=== PATIENT | female | born 1985 | race Caucasian/White ===

== ENCOUNTER 2016-08-29 10:50 | Emergency (ER) | payer OTHER ==
[~2016-08-29] VITALS: Ht 162.6 cm; Wt 89.0 kg
[2016-08-29 10:56] VITALS: Ht 162.6 cm; Wt 89.0 kg
[2016-08-29] MEDS ORDERED: IBUPROFEN 800 MG TAB PO ONE (13:30)
[2016-08-29 13:33] LABS: URINE BLOOD (Dip) POC 1+ (NEGATIVE)
[2016-08-29] MEDS ORDERED: IBUP-1542 PO (14:08)
--- NOTE | 2016-08-29 14:11 | ERD ---
ER Documentation Chief Complaint Date/Time DATE: 08/29/16 TIME: 14:10 Chief Complaint body aches, chills x 3days HPI This 31-year-old female presents with fever and body aches for last 2 days. She denies sore throat, cough, vomiting, abdominal pain, diarrhea, urinary complaints, neck stiffness, headache, rashes. ROS All systems reviewed and are negative except as per history of present illness. Medications Home Meds Active Scripts Ibuprofen* (Motrin*) 600 Mg Tab, 600 MG PO Q6, #20 TAB Prov:LUL FERNANDEZ MD 08/29/16 Allergies Allergies: Coded Allergies: No Known Allergy (Unverified , 08/29/16) PMhx/Soc Medical and Surgical Hx: pt denies Medical Hx, pt denies Surgical Hx Physical Exam Vitals Vital Signs Date Time Temp Pulse Resp B/P Pulse Ox O2 Delivery O2 Flow Rate FiO2 08/29/16 10:56 98.8 89 20 139/78 99 Physical Exam Const: [] Alert, [id number] per Head: Atraumatic Eyes: Normal Conjunctiva ENT: Normal External Ears, Nose and Mouth. Neck: Full range of motion..~ No meningismus. Resp: Clear to auscultation bilaterally Cardio: Regular rate and rhythm, no murmurs Abd: Soft, non tender, non distended. Normal bowel sounds Skin: No petechiae or rashes Back: No midline or flank tenderness Ext: No cyanosis, or edema Neur: Awake and alert Psych: Normal Mood and Affect Results 24 hrs Laboratory Tests Test 08/29/16 13:36 Bedside Urine Blood 1+ Bedside Urine Glucose (UA) Negative Bedside Urine Ketones (LAB) Negative Bedside Urine Leukocyte Esterase (L Negative Bedside Urine Nitrite (LAB) Negative Bedside Urine Protein (LAB) Negative Bedside Urine pH (LAB) 5.5 Current Medications Medications (Trade) Dose Ordered Sig/Luiz Route PRN Reason Start Time Stop Time Status Last Admin Dose Admin Ibuprofen (Motrin) 800 mg ONCE ONCE PO 08/29/16 13:30 08/29/16 13:31 DC 08/29/16 13:28 Procedures/MDM HCG is negative. Urine shows 1+ hemoglobin without leukocytes, nitrites, glucose. Patient was given ibuprofen. Patient presents with febrile illness and body aches for 2 days without signs or symptoms to suggest bacterial infection. I suspect she has a viral illness we will treat with ibuprofen and further observation at home. The patient was stable with no new complaints during the ER course. Clinically, there is no current evidence to suggest meningitis, sepsis, acute abdomen, pneumonia, acute coronary syndrome, pulmonary embolism, or any other emergent condition appearing to require further evaluation or hospitalization. The patient should certainly return for any new or worsening symptoms per the aftercare instructions. They should otherwise follow-up with her primary care doctor for reevaluation this week. Departure Diagnosis: Primary Impression: Fever Fever type: unspecified Qualified Code: R50.9 - Fever, unspecified fever cause Condition: Stable Patient Instructions: Febrile Illness, Uncertain Cause (Adult), Fever Control ( Adult) Additional Instructions: Urine normal. Suspect viral illness which may last 3-5 days. Recheck for new or worsening symptoms with primary care doctor. LUL FERNANDEZ MD Aug 29, 2016 14:11
[2016-08-29 14:28] VITALS: TEMP 99.2
== END 2016-08-29 14:28 | disposition home or self-care (01) ==
LOC: FTE 10:50
DX: R50.9 Fever, unspecified (principal)
CPT/HCPCS: 81003; Z7502; Z7610; 99283